=== PATIENT | male | born 1965 | race Caucasian/White ===

== ENCOUNTER 2016-07-28 08:10 | Day surgery (SDC) | payer OTHER ==
[~2016-07-28 08:10] MED LIST: RINGERS SOLUTION,LACTATED 1,000 ML IV PRN; ceFAZolin SODIUM 1 GM VIAL IV PRN
--- OUTSIDE RECORDS SUMMARY | 2016-07-28 08:14 | XMS REPORT | Continuity of Care Document ---
:1965 Author Organization [facility] ([facility]) [place] [address] Phone [phone] Care Team Providers Name Role Phone Provider, No-Primary Care Primary Care Provider Unavailable Source Comments This disclosure is being made pursuant to the Care Everywhere program, applicable federal and state laws, and may not contain all informaitonavailable regarding this patient.[facility] ([facility]) Active Allergies and Adverse Reactions No Known Allergies Current Medications Prescription Sig. Disp. Refills Start Date End Date Status citalopram 40 mg tablet Take 40 mg by mouth Active daily. Indications: temper buPROPion (WELLBUTRIN Take 300 mg by mouth Active XL) 300 mg extended Every morning. release tablet 24 hour Indications: MAJOR DEPRESSIVE DISORDER pantoprazole (PROTONIX) Take 40 mg by mouth Active 40 mg EC tablet daily. Indications: GASTRIC ULCER oseltamivir (TAMIFLU) Take 1 Cap by mouth 10 Cap 0 06/25/2012 Active 75 mg capsule 2 times daily. Indications: INFLUENZA Pyril Wb-[id number]-Szdbqei Take 10 mL by mouth 120 mL 1 06/25/2012 Active Phos (PRO-RED AC) every 4 hours. 8.33-5-9 mg/5 mL Liqd Indications: COUGH, NASAL CONGESTION Active Problems No known active problems Social History Tobacco Use Types Packs/Day Years Used Date Never Assessed Last Filed Vital Signs Vital Sign Reading Time Taken Blood Pressure 130/84 07/05/2012 11:07 AM [employer] OPERATOR Pulse 78 07/05/2012 11:07 AM [employer] OPERATOR Temperature 36.3 C (97.3 F) 07/05/2012 11:07 AM M[employer] OPERATOR Respiratory Rate 16 07/05/2012 11:07 AM [employer] OPERATOR Height 1.753 m (5' 9") 07/05/2012 11:07 AM MEL[employer] OPERATOR Weight 95.981 kg (211 lb 9.6 oz) 07/05/2012 11:07 AM MEL[employer]NA[employer] OPERATOR Body Mass Index 31.23 07/05/2012 11:07 AM MELT [employer]NA[employer] OPERATOR Oxygen Saturation - - Plan of Care Health Maintenance Due Date Last Done Comments HCV Screening 1965 Hepatitis B Vaccine (1 of 3 - Primary Series) 1965 Tdap Vaccine 09/10/1975 Lipid Disorder Screening 1982 MMR Vaccine 1982 Td Vaccine 1982 Colonoscopy 2014 Prostate Cancer Screening 2014 Influenza Vaccine: Seasonal (#1) 01/18/2016 Results from Last 3 Months Not on file
[2016-07-28] MEDS ORDERED: RINGERS SOLUTION,LACTATED 1,000 ML IV ONE ×2 (08:35→10:12)
--- NOTE | 2016-07-28 11:57 | OR ---
Operative Report - Dictated Report Narrative: Date: 07/28/2016 Physician: Declan Cramer M.D. Maintenance Repairman: Shlomo Martinez PA-C Preoperative diagnosis: Right Shoulder full-thickness rotator cuff tear, SLAP tear, acromioclavicular arthritis Postoperative diagnosis: Right Shoulder thickness rotator cuff tear, SLAP tear, acromioclavicular arthritis Procedure: Right shoulder arthroscopy with mini open rotator cuff repair, biceps tenodesis, open distal clavicle resection Anesthesia: General plus regional Complications: None Estimated blood loss: Minimal Specimens: None Retained implants: [employer]hew 4.5mm Helicoil anchors 2, Martinez and nephew 4.5mm footprint anchors 2, [employer]hew 9 x 25 mm interference screw Drains: None Indications: Micky Is a 50 year-old male who has been followed in my clinic with complaints of shoulder pain consistent with full-thickness rotator cuff tear, superior labral tear, and acromioclavicular arthritis. Physical exam and diagnostic imaging were consistent with his complaints and concern for the above pathology. Conservative measures have failed including, but not limited to, passage of time, activity modification, medications, physical therapy/home exercise program, or injections. The risks, benefits, and alternatives were discussed in clinic. The risks being , bleeding, infection, blood clots, nerve, tendon, ligament, blood vessel injury, persistent pain, arthrosis, stiffness, need for prolonged therapy, need for additional procedures, and persistent symptoms. Consent was obtained in the clinic. Procedure: After marking the correct extremity in the preoperative holding area, a timeout was performed in the operating room. IV antibiotics consisting of 2 g of Ancef were administered prior to the procedure. A general followed by regional anesthetic was induced by the nurse supervisor cold rolling. This was in the supine position, then the patient was transitioned to a beachchair position with all bony prominences well-padded, head in neutral, the nonoperative arm well supported, and the legs padded with SCDs in place. The operative shoulder was then prepped and draped in a standard sterile fashion. After marking out the bony landmarks, saline was infused into the joint through a posterior lateral portal site. A chencho incision was made, and the blunt trocar and cannula was introduced into the shoulder joint. An anterior working portal was placed in the rotator cuff interval using a spinal needle for guidance. Upon initial evaluation, the biceps tendon showed fraying at the bicipital anchor. The middle glenohumeral ligament was intact. Subscapularis tendon was intact without any tearing. The glenoid showed grade 1 and scattered grade 2 chondral changes. The humeral head articular surface showed grade 1 chondral changes. The anterior labrum was significantly frayed. The superior labrum was degeneratively frayed and peeled back off of the glenoid. The pouch was of normal caliber. The posterior labrum was intact. The supraspinatus tendon was completely torn and mildly retracted. The infraspinatus tendon was intact. Given the large SLAP tear the decision was made to prepare the biceps tendon for tenodesis. Arthroscopic scissors were used to release the biceps tendon at the bicipital anchor into the superior labrum. Attention was then turned to the subacromial space. Subacromial bursectomy was performed utilizing the prior portals. The coracoacromial ligament was intact without significant fraying. The bursal side of the rotator cuff demonstrated full-thickness tear of the supraspinatus tendon with mild retraction as well as a large amount of bursal tissue and significant scarring of the deltoid down to the humerus.. The acromial arch demonstrated normal morphology. Based on the arthroscopic findings, as well as exam and radiographic findings, it was elected to proceed with a mini open rotator cuff repair and open biceps tenodesis. A longitudinal incision centered over the previously identified rotator cuff tear was made just off the edge of the acromion. This was approximately 5 centimeters in length. The deltoid fascia was split sharply in line with its fibers, and blunt dissection was carried through the deltoid muscle. Any remaining subacromial bursal tissue was debrided in order to expose the underlying rotator cuff tear and bicipital groove. The bicipital groove was incised longitudinally with a sharp knife and the biceps tendon was retrieved out of the joint and clamped with an Allis clamp. A guidepin was placed low in the groove and this was over reamed with a 9 mm reamer based on the size of the biceps tendon. The Martinez [employer]hew bisector device was used to advance the biceps tendon into our drill hole and held in place with the provided pin. A 9 x 25 mm interference screw was then advanced over the pin securing the biceps tendon into our drill hole. The proximal remnant of the tendon was excised with a sharp knife. Then turned our attention to the rotator cuff tear. The tear comprised the entirety of the supraspinatus tendon with approximately 1 cm of retraction. Palpation of the tendon revealed thinning and poor tissue quality at the musculotendinous junction. The tuberosity was debrided of its soft tissues producing a bleeding bed for the tendon to be secured to. Two 4.5 mm PEEK helicoil anchors were placed just off the articular surface of the humeral head. A series of horizontal mattress sutures were placed at the prepared edge of the rotator cuff. This allowed for a tension-free return of the tendon to the greater tuberosity. The sutures were then passed longitudinally into two 4.5 mm PEEK footprint anchors. This was performed using a suture bridge technique. This gave good overall compression to the rotator cuff at the insertion site. The shoulders place a range of motion and had no lift off of the repair site as well as no crepitance or signs of impingement. Full passive range of motion was able to be obtained. Once it was felt that the rotator cuff was adequately repaired, attention was then turned to the distal clavicle. A longitudinal incision was made over the acromioclavicular joint. This was sharply dissected down to the chromic clavicular capsule. Cautery was utilized for hemostasis. A longitudinal capsulotomy was made and elevated off the anterior posterior aspects of the distal clavicle. There was notable hypertrophic bone and loss of joint space between the acromion and clavicle. Protecting the surrounding soft tissues, an oscillating saw was utilized in order to resect approximately 10 mm of bone from the distal clavicle. The remaining clavicle was stable after removing this. The shoulders place a range of motion and showed no remaining impingement between the acromion and the clavicle. Wounds were then thoroughly irrigated. The capsule was closed with interrupted 0 Vicryl to subcutaneous tissue with 3-0 Vicryl. Skin was closed with 4-0 nylon. 0 Vicryl was utilized in order to repair the deltoid fascia. 3 -0 Vicryl was placed in the subcutaneous tissue. The rotator cuff incision as well as the portal sites were closed with interrupted nylon. Dressings consisting of Xeroform, 4 x 4, ABD, soft roll, and tape were applied. All sponge, needle, blade, and instrument counts were correct prior to closing the wounds. The patient was awoken and transferred to the postanesthesia care unit in stable condition.
[2016-07-28 14:10] VITALS: BP 114/65
== END 2016-07-28 08:11 | disposition home or self-care (01) ==
LOC: AMB 08:10
PROVIDERS: ATTEND Orthopaedic Surgery
PROC: 0LS30ZZ Reposition Right Upper Arm Tendon, Open Approach (ICD-10-PCS; 2016-07-28)
PROC: 0LM10ZZ Reattachment of Right Shoulder Tendon, Open Approach (ICD-10-PCS; 2016-07-28)
PROC: 0PB90ZZ Excision of Right Clavicle, Open Approach (ICD-10-PCS; 2016-07-28)
PROC: 0RJJ4ZZ Inspection of Right Shoulder Joint, Percutaneous Endoscopic Approach (ICD-10-PCS; principal; 2016-07-28 09:30)
DX: M75.101 Unspecified rotator cuff tear or rupture of right shoulder, not specified as traumatic (principal); S43.491A Other sprain of right shoulder joint, initial encounter; M13.811 Other specified arthritis, right shoulder; Z68.29 Body mass index [BMI] 29.0-29.9, adult